=== PATIENT | female | born 1950 | race Caucasian/White ===

== ENCOUNTER 2018-01-24 22:10 | Inpatient (IN) ==
--- NOTE | 2018-01-24 23:45 | Emergency Department Note ---
Disposition Clinical Impression: Elevated troponin Chest pain Qualifiers: Chest pain type: unspecified Qualified Code(s): R07.9 - Chest pain, unspecified Disposition: Admitted As Inpatient Condition: Good Referrals: Navdeep Darby MD [Primary Care Provider] - Forms: ED Satisfaction Letter Time of Disposition: 01:59 Chest Pain HPI - General Chief Complaint: ED Chest Pain Stated Complaint: CP/L arm x 1day Time Seen by Provider: 01/24/18 23:33 Source: patient Limitations: no limitations Vital Signs Reviewed: Yes Nursing Notes Reviewed: Yes - History of Present Illness HPI Narrative: 68-year-old female former smoker presents with episodes of chest pain. She describes this as substernal, she first noticed them yesterday. She describes them as intermittent, with periods of time where she feels nothing, or to time where it is not as intense, than. The time where she feels that the pain is so bad she goes down to her knees. She mentions that she does have some mild shortness of breath when the pain occurs, as well as nausea. She states the pain is worse when she walks. He mentions she did have some discomfort moving into her left upper extremity that occurred today. She attempted to also more throughout the course of the past day to help with symptoms, but she states this has helped only marginally. She does mention that she has a scheduled CT scan tomorrow ordered by her primary care provider, and she describes history of flank pain, and abnormal urinalysis. She denies any near syncopal symptoms, abdominal pain, night sweats, weight loss, hemoptysis, fever, cough. Severity scale (1-10): 8 - Related Data Home Medications Medication Instructions Recorded Confirmed Unable To Obtain [Unable to Obtain] 01/25/18 01/25/18 Allergies Allergy/AdvReac Type Severity Reaction Status Date / Time No Known Allergies Allergy Verified 01/25/18 00:42 All systems ED: reviewed and negative except as stated. Review of Systems: As Per HPI Constitutional: Denies: fever, chills, weakness Eyes: Denies: vision change ENT ED: Denies: throat pain Cardiovascular: Reports: as per HPI. Denies: palpitations Respiratory: Reports: as per HPI Gastrointestinal: Reports: as per HPI Genitourinary: Denies: dysuria Musculoskeletal: Reports: as per HPI Integumentary: Denies: rash Neurological: Denies: headache, weakness, numbness, paresthesias Endocrine: Denies: fatigue Hematological/Lymphatic: Denies: easy bleeding Allergic/Immunologic: Denies: facial swelling Chest Pain PMH - Past Medical History Medical history: Reports: arthritis, hypertension Psychiatric history: Reports: no psych history - Social History Smoking Status: Former smoker Alcohol use: Reports: none Drug use: Reports: none Physical Exam - General Limitations: no limitations General appearance: alert, in no apparent distress - Head Head exam: normocephalic - Eye Eye exam: Present: EOMI. Absent: conjunctival injection - ENT ENT exam: normal oropharynx, mucous membranes moist - Neck Neck exam: Present: full ROM. Absent: lymphadenopathy - Chest Chest inspection: Present: normal inspection, symmetric chest wall rise - Respiratory Respiratory exam: Present: normal lung sounds bilaterally. Absent: respiratory distress - Cardiovascular Cardiovascular exam: Present: regular rate, normal rhythm - Abdominal Exam Abdominal exam: Present: soft, Non-Tender. Absent: pulsatile mass - Extremities Exam Extremities exam: Present: normal inspection, full ROM, normal capillary refill - Back Exam Back exam: Present: full ROM. Absent: CVA tenderness (R), CVA tenderness (L) - Neurological Exam Neurological exam: Present: alert - Psychiatric Psychiatric exam: Present: normal affect, normal mood - Skin Skin exam: Present: warm, dry, intact, normal color. Absent: rash, cyanosis, diaphoresis Course Course Narrative: 60-year-old female former smoker arrives via private vehicle with complaint of chest pain. She describes it as intermittent since yesterday, but had worsened tonight when she was eating which prompted her visit to the emergency department. She does describe radiation into her left upper extremity, and worsening on exertion. She denies any diaphoresis, or shortness of breath, back pain, abdominal pain, cough, fever, night sweats, weight loss. Patient mentions that she has a planned CT abdomen scheduled by her primary care provider, which apparently is due to some flank pain and possibly an abnormal urinalysis. Patient is unsure the exact reasoning of the CT scan. Today she denies any abdominal pain, flank pain, bowel or bladder symptoms. EKG does show an incomplete right bundle-branch block, moderate T-wave abnormalities. She currently denies any chest pain at this point. Portable chest x-ray as read by radiologist, per recommendations for follow-up CT chest, or apical lordosis chest x-ray. Patient was discussed with Dr. Rowland who also had face time with patient. At this point, we will anticipate admission for ACS rule out due to likely heart score. Dr. rowland also agreed with CT of chest, since patient has a scheduled CT abdomen and we will do that as well. Patient seen and examined. she is declined analgesics. Workup initiated. - Reevaluation(s) Reevaluation #1: Other than heartburn sensations, patient continues to deny any worsening pain, and analgesics but is requesting something for her reflux. Her vitals within normal limits. Patient was discussed with cardiology who agreed for admission and heparinization. Patient was discussed with and accepted by hospitalist Dr. Brooks Time: 01:57 - Consultations Consultation #1: Patient was discussed with on-call computed tomography scanner operator Dr. Navdeep Callahan, who agreed with admission to hospitalist, and for heparinization. Time: 01:49 Vital Signs Temperature 97.9 F 01/24/18 22:13 Pulse Rate 74 01/24/18 22:13 Respiratory Rate 14 01/24/18 22:13 Blood Pressure 204/97 01/24/18 22:13 O2 Sat by Pulse Oximetry 96 01/24/18 22:13 Temperature 97.9 F 01/24/18 22:13 Pulse Rate 73 01/25/18 01:07 Respiratory Rate 18 01/25/18 01:07 Blood Pressure 193/96 01/25/18 01:07 O2 Sat by Pulse Oximetry 95 01/25/18 01:07 Oxygen Delivery Oxygen Delivery Room Air Chest Pain - Lab Data Result diagrams: 01/24/18 22:27 01/24/18 22:27 Lab Results 01/24/18 01/24/18 01/24/18 Range/Units 22:17 22:27 22:27 WBC 8.6 (4.3-11.1) K/mcL RBC 4.90 (3.82-4.97) M/mcL Hgb 14.5 (11.5-15.4) g/dL Hct 43.1 (35.3-44.9) % MCV 88.0 (83.0-100.0) fL MCH 29.6 (28.0-33.3) pg MCHC 33.6 (31.6-35.5) g/dL RDW 13.5 (11.5-14.5) % Plt Count 254 (140-400) K/mcL MPV 9.7 (9.4-12.4) fL Immature Gran % 0.5 (0-4) % Seg Neutrophils % 81.1 % Lymphocytes % 10.4 % Monocytes % 6.8 % Eosinophils % 1.0 % Basophils % 0.2 % Neutrophils # 7.0 (1.6-8.9) K/mcL Lymphocytes # 0.9 (0.6-4.6) K/mcL Monocytes # 0.6 (0.0-1.3) K/mcL Eosinophils # 0.1 (0.0-0.6) K/mcL Basophils # 0.0 (0.0-0.2) K/mcL PT 10.9 (9.4-12.1) Seconds INR 1.0 APTT 37.0 H (26.0-36.0) Seconds Sodium 137 (136-145) mEq/L Potassium 3.7 (3.5-5.1) mEq/L Chloride 108 H (98-107) mEq/L Carbon Dioxide 26 (23-29) mEq/L BUN 14 (8-23) mg/dL Creatinine 0.64 (0.60-1.20) mg/dL Est GFR ( Amer) > 60 (> 60) Est GFR (Non-Af Amer) > 60 (> 60) BUN/Creatinine Ratio 22 (6-26) Glucose 107 H (70-105) mg/dL Calculated Osmolality 285 (280-300) Calcium 9.4 (8.6-10.3) mg/dL Troponin I 0.13 H* (< 0.04) ng/mL Heart Score - Score History: Slightly Suspicious EKG: Normal Age: Greater than 65 Risk Factors: Equal/Greater than 3 risk factor or history of atherosclerotic disease Troponin: Greater than 3x normal limit HEART Score Total: 6
[2018-01-25 00:04] LABS: Basophils % 0.2 %; Eosinophils # 0.1 K/mcL (0.0-0.6); Hematocrit 43.1 % (35.3-44.9); Hemoglobin 14.5 g/dL (11.5-15.4); Immature Granulocytes % 0.5 % (0-4); Lymphocytes # 0.9 K/mcL (0.6-4.6); Lymphocytes % 10.4 %; Mean Corpuscular HGB Conc 33.6 g/dL (31.6-35.5); Mean Corpuscular Hemoglobin 29.6 pg (28.0-33.3); Mean Platelet Volume 9.7 fL (9.4-12.4); Monocytes # 0.6 K/mcL (0.0-1.3); Monocytes % 6.8 %; Platelet Count 254 K/mcL (140-400); Red Cell Distribution Width 13.5 % (11.5-14.5); Segmented Neutrophils % 81.1 %
--- NOTE | 2018-01-25 00:05 | Emergency Department Note ---
Disposition Clinical Impression: ACS (acute coronary syndrome) Disposition: Still a Patient Condition: Good Referrals: Navdeep Darby MD [Primary Care Provider] - Forms: ED Satisfaction Letter General Adult HPI - General Chief complaint: ED Chest Pain Stated complaint: CP/L arm x 1day Time Seen by Provider: 01/24/18 23:33 Source: patient Limitations: no limitations - History of Present Illness Pain Scale: 8 - Related Data Allergies Allergy/AdvReac Type Severity Reaction Status Date / Time Unable to Assess Allergy Unverified 01/24/18 22:13 Constitutional: Denies: fever, chills, weakness Eyes: Denies: vision change ENT ED: Denies: throat pain Cardiovascular: Reports: as per HPI. Denies: palpitations Respiratory: Reports: as per HPI Gastrointestinal: Reports: as per HPI Genitourinary: Denies: dysuria Musculoskeletal: Reports: as per HPI Integumentary: Denies: rash Neurological: Denies: headache, weakness, numbness, paresthesias Endocrine: Denies: fatigue Hematological/Lymphatic: Denies: easy bleeding Allergic/Immunologic: Denies: facial swelling Past Medical History - Past Medical History Medical history: Reports: arthritis, hypertension Psychiatric history: Reports: no psych history - Social History Smoking Status: Former smoker Smokeless Tobacco Status: No Alcohol use: Reports: none Drug use: Reports: none Physical Exam - General Limitations: no limitations General appearance: alert, in no apparent distress Course - Reevaluation(s) Reevaluation #1: Attestation note I examined this patient and my medical decision-making was reviewed with the PA. I agree with the documented findings, disposition and treatment plan as described except to the extent set forth below. Patient seen with SIMBA DOSS, Please see a copy of his note for details of the H&P, ED evaluation, management and disposition. I have independently evaluated the patient and confirmed appropriate portions of the history and physical exam. Briefly: 60-year-old female presents with chest pain some shortness of breath patient has a HEART score 4. Chest x-ray ordered at triage shows a finding in the apex they have recommended either apical lordotic views were CT the chest to do a CT of the chest EKG shows some mild possible early ST depression of 1 mm or less in the 3 and V4 and 5 Department patient is has a history of hiatal hernia in the past. Patient getting screening labs with admission anticipated for chest pain ACS. Disposition pending Time: 00:04 Vital Signs Temperature 97.9 F 01/24/18 22:13 Pulse Rate 74 01/24/18 22:13 Respiratory Rate 14 01/24/18 22:13 Blood Pressure 204/97 01/24/18 22:13 O2 Sat by Pulse Oximetry 96 01/24/18 22:13 Temperature 97.9 F 01/24/18 22:13 Pulse Rate 74 01/24/18 22:13 Respiratory Rate 14 01/24/18 22:13 Blood Pressure 204/97 01/24/18 22:13 O2 Sat by Pulse Oximetry 96 01/24/18 22:13 Oxygen Delivery Oxygen Delivery Room Air
[2018-01-25 00:08] LABS: Prothrombin Time 10.9 Seconds (9.4-12.1)
[2018-01-25 00:32] LABS: BUN/Creatinine Ratio 22 (6-26); Blood Urea Nitrogen 14 mg/dL (8-23); Calcium 9.4 mg/dL (8.6-10.3); Carbon Dioxide 26 mEq/L (23-29); Chloride 108 mEq/L (98-107); Glucose 107 mg/dL (70-105); Osmolality,Calculated 285 (280-300); Potassium 3.7 mEq/L (3.5-5.1); Sodium 137 mEq/L (136-145); eGFR For Non-African Americans > 60 (> 60)
[2018-01-25 00:39] LABS: Troponin I 0.13 ng/mL (< 0.04)
[2018-01-25] MEDS ORDERED: Aspirin 81 MG TAB.CHEW PO ONE (00:39)
[2018-01-25] MEDS ORDERED: Pantoprazole 40 MG VIAL IVP ONE (01:51)
[2018-01-25] MEDS ORDERED: *HR* Heparin 5,000 UNIT/ML VIAL IVP ONE (01:51)
[2018-01-25] MEDS ORDERED: Heparin 25,000 UNIT/500 ML D5W 25,000 UNIT/500 ML BAG IVC SCH (02:00)
[2018-01-25] MEDS ORDERED: Acetaminophen 325 MG TABLET PO PRN (02:01)
[2018-01-25] MEDS ORDERED: Naloxone 0.4 MG/ML INJ IVP PRN (02:01)
[2018-01-25] MEDS ORDERED: *HR* HYDROcodone/Acet 5/325 mg TABLET PO PRN (02:01)
[2018-01-25] MEDS ORDERED: *HR* OxyCODONE Immed Rel 5 MG TABLET PO PRN (02:01)
[2018-01-25] MEDS ORDERED: *HR* Labetalol 20 MG/4 ML SYRINGE IVP PRN (02:05)
--- NOTE | 2018-01-25 02:39 | Internal Med History&Physical ---
Date of Encounter: 01/25/18 Time of Encounter: 02:00 Internal Medicine - H&P: HPI Chief complaint: chest pain History of present illness: Ms. Jade is a 68 year old female with past medical history of hypertension, hyperlipidemia, ex-smoker, presented to the ED with 2 day history of intermittent chest pain. Substernal, 6 out of 10 in intensity, radiates to her left arm, aggravated by exertion, and no known relieving factors. Denies any fevers/chills, nausea/vomiting, or diaphoresis. No shortness of breath, cough, sputum production, abdominal pain, or change in bowel habits. Did not have any similar episodes in the past. No family history of premature CAD. In the ER, she was afebrile and hemodynamically stable. She was saturating well on room air. Initial investigation showed elevated troponin of 0.13 but normal CBC and BMP. EKG showing slight ST depression in V3-5. CT scan showed evidence of coronary calcifiications and 5mm left lung nodule. Patient was loaded with aspirin and started on heparin drip after speaking to the industrial organizational psychologist. Past Med Surg Social Fam HX - Past Medical History Medical history: arthritis, hyperlipidemia, hypertension Psychiatric history: no psych history - Social History Smoking Status: Former smoker Smokeless Tobacco Status: No Alcohol use: none Drug use: none Internal Medicine - H&P: Meds Unable To Obtain [Unable to Obtain] 01/25/18 [History] 3 Allergy/AdvReac Type Severity Reaction Status Date / Time No Known Allergies Allergy Verified 01/25/18 00:42 All Systems PM: A 10-system review of systems was performed and is negative for pertinent findings except as documented above in the HPI. - Constitutional Vitals: Temp Pulse Resp BP Pulse Ox 97.9 F 70 18 173/87 95 01/24/18 22:13 01/25/18 02:31 01/25/18 02:31 01/25/18 02:31 01/25/18 02:31 Exam: General: Alert and oriented HEENT:EOM, pupils equal, round, and reactive. Cardiovascular:Normal S1 & S2, no murmurs or gallops. No JVD. Pulse regular. Lungs:Normal breath sounds, no wheezes or crackles. Abdomen:Soft, non-tender, no rigidity. Extremities:No deformity, no edema or tenderness, no joint swelling. Neurological:Normal cognition and motor skills. Skin:Normal color, no rash, no lesions. Pulses:Carotid and radial pulses normal +2. Rest of the physical exam is non-contributory Internal Med - H&P Results - Labs CBC & Chem 7: 01/24/18 22:27 01/24/18 22:27 - Assessment and plan (1) NSTEMI (non-ST elevated myocardial infarction) Current Visit: Yes Status: Acute Assessment and plan: Presented with atypical chest pain and elevated cardiac markers. Risk factors including hypertension, hyperlipidemia and ex-smoker. EKG showing ST depression in lateral leads. Troponin 0.13 -> trend Loaded with aspirin, start daily aspirin from AM heparin gtt per cardiology bb, statin to be started as well Decision for the choice of ischemic workup per cardiology in AM, consult called from the ED (2) Hypertension Current Visit: Yes Status: Chronic Assessment and plan: Elevated at 190/90s on aldactone at home as she had "many reactions to the other anti-HTN meds" PRN labetalol start metoprolol from AM Qualifiers: Hypertension type: unspecified Qualified Code(s): I10 - Essential (primary ) hypertension (3) HLD (hyperlipidemia) Current Visit: No Status: Chronic Assessment and plan: lipid panel done in December 2017 showed LDL of 118 willl not repeat another one Lipitor 80 mg Qualifiers: Hyperlipidemia type: unspecified Qualified Code(s): E78.5 - Hyperlipidemia , unspecified (4) Lung nodule Current Visit: Yes Status: Acute Assessment and plan: Patient is ex-smoker, quit 16 years ago 5 mm lung nodule noted incidentally on the left lower lobe Follow-up outpatient (5) DVT prophylaxis Current Visit: Yes Status: Acute Assessment and plan: heparin gtt as above - Time Spent With Patient Total time spent is greater than 50% in coordination of care (as documented) at patient's floor/unit and/or counseling patient:
[2018-01-25 06:48] LABS: Basophils % 0.3 %; Eosinophils # 0.1 K/mcL (0.0-0.6); Eosinophils % 1.7 %; Hematocrit 42.6 % (35.3-44.9); Hemoglobin 14.2 g/dL (11.5-15.4); Immature Granulocytes % 0.3 % (0-4); Lymphocytes # 1.5 K/mcL (0.6-4.6); Lymphocytes % 20.2 %; Mean Corpuscular HGB Conc 33.3 g/dL (31.6-35.5); Mean Corpuscular Hemoglobin 29.6 pg (28.0-33.3); Mean Corpuscular Volume 88.9 fL (83.0-100.0); Monocytes # 0.6 K/mcL (0.0-1.3); Monocytes % 7.9 %; Platelet Count 245 K/mcL (140-400); Red Blood Count 4.79 M/mcL (3.82-4.97); Red Cell Distribution Width 13.5 % (11.5-14.5); Segmented Neutrophils % 69.6 %
[2018-01-25 08:02] LABS: Estimated Average Glucose 117 mg/dl; Hemoglobin A1C 5.7 %
[2018-01-25 09:33] LABS: BUN/Creatinine Ratio 19 (6-26); Blood Urea Nitrogen 11 mg/dL (8-23); Calcium 9.1 mg/dL (8.6-10.3); Carbon Dioxide 25 mEq/L (23-29); Chloride 106 mEq/L (98-107); Glucose 117 mg/dL (70-105); Magnesium 1.9 mg/dL (1.6-2.6); Osmolality,Calculated 292 (280-300); Potassium 3.5 mEq/L (3.5-5.1); Sodium 141 mEq/L (136-145); eGFR For Non-African Americans > 60 (> 60)
[2018-01-25] MEDS: Aspirin Enteric Coated 81 MG Tablet PO SCH (09:59)
--- NOTE | 2018-01-25 11:21 | Cardiology Consult Note ---
Date of Encounter: 01/25/18 Time of Encounter: 11:04 Assessment and Plan (1) Chest pain Current Visit: Yes Status: Acute Patient presenting with chest pain and elevated troponin, no ST elevation on EKG - currently minimally symptomatic - patient most likely NSTEMI - troponin uptrending, 0.13, 0.67 - bmp and cbc within normal limits - JENIFER score of 5, significant for age, ASA, angina history, positive trop, CAD hx - HEART score of 7 - past echocardiogram performed 05/2017 showing EF 65%, with mild asymmetrical hypertrophy, mild left ventr diastolic dysfunction, mild TR - vitals have remained stable and has not taken nitro - on heparin drip, asa, statin and BB Plan - echo pending - continue heparin drip, statin, asa, bb - continue to trend trop - ddimer, negative - [facility] scheduled for today, patient in agreement and understands plan Qualifiers: Chest pain type: unspecified Qualified Code(s): R07.9 - Chest pain, unspecified Discussion w patient/family: The assessment and plan as outlined above was discussed with the patient and/or family members who expressed understanding and agreement. All questions were answered. Thank you for involving us in the care of your patient. Please call with any questions. History of Present Illness Consult date: 01/25/18 Requesting physician: Ismael Brooks Consult reason: chest pain Chief complaint: chest pain History of present illness: Ms. Jade is a 68 year old female presenting for cardiology consult for chest pain and elevated troponin. Patient has medical history of hypertension, hyperlipidemia, acid reflux and history of smoking, Patient was brought to the ER on 01/24/18 for chest pain which had started 3 days ago and was described to have waxing and waning characteristics of mid-sternal pain described as a burning sensation, that gradually became a pressure in the middle of the chest with radiation once into the left arm. She has exacerabtion of factors with exertion. She states initially she thought she was having indigestion and was taking tums, ant-acids which provided slight relief for about 30 minutes at a time, however, never completely took her symptoms away. Over the last day, her symptoms progressively got worse, stating yesterday she was in her kitchen and fell to her knees due to pain. She states that over the past few days she has continued to go to work at [employer], lifting, bending, and walking states that her symptoms would increase during these activities. She denies prior history of similar events. She denies palpitations, vomiting, sob, syncope, or prior cardiac history. She had an echocardiogram performed 06/03 for diastolic dysfunction. She states that her father of an MO at the age of 55. In the ER, she was found to have EKG with ST depression in V1-V3, troponin was elevated at .16, was not given nitro as symptoms had resolved. Started on heparin ACS protocol. She does take a baby aspirin daily. CXR showed nonspecific density to the medial right lobe at the apex and had followed up CT which showed 5mm nodule in LLL, with coronary artery disease. Today, patient states that she has minimal pain in the mid chest, continues to describe pain as pressure/ burning sensation, rated 2-3/10. She denies current nausea, abdominal pain, recent fever or chills. Past Med Surg Social Fam HX - Past Medical History Medical history: arthritis, hyperlipidemia, hypertension Psychiatric history: no psych history - Past Surgical History Surgical History: appendectomy, sinus surgery, JANETTE/BSO Additional surgical history: groin hernia, lumpectomy to left breast, tonsils - Social History Smoking Status: Former smoker Smokeless Tobacco Status: No Alcohol use: none Drug use: none Medications and Allergies Unable To Obtain [Unable to Obtain] 01/25/18 [History] 3 Allergy/AdvReac Type Severity Reaction Status Date / Time No Known Allergies Allergy Verified 01/25/18 00:42 All Systems Review: The remainder of the systems were reviewed and are negative - Constitutional Constitutional: fatigue, no chills, no fever(s), no frequent falls, no headache( s), no weakness, no weight gain, no weight loss - Cardiovascular Cardiovascular: chest pain at rest, chest pain with exertion, no as per HPI, no claudication, no diaphoresis, no dyspnea at rest, no dyspnea on exertion, no irregular heart rhythm, no radiating jaw, neck or arm pain, no leg edema, no lightheadedness, no orthopnea, no palpitations, no syncope - Respiratory Respiratory: no cough, no dyspnea - Gastrointestinal Gastrointestinal: nausea, no abdominal pain, no diarrhea - Musculoskeletal Musculoskeletal: back pain (chronic) - Integumentary Integumentary: no rash - Neurological Neurological: no dizziness, no focal weakness, no numbness, no syncope, no tingling Physical Examination Vital Signs, Last 4 Hours Temp Pulse Resp BP Pulse Ox 01/25/18 07:14 98.0 F 62 15 190/90 97 General: Conversant, No Apparent Distress HEENT: Atraumatic, Normocephaly, Mucus Membranes Moist Neck: No JVD, Normal carotid pulses Cardiac: Reg Rate and Rhythm, Normal S1 and S2, No Murmur Lungs: Normal Breath Sounds, No Wheeze, Rales, Rhonchi Neuro: Alert and responsive, No focal deficits noted Abdomen: Soft, Non-Tender Skin: No rashes noted on visualized skin Musculoskeletal: No Chest Wall Tenderness Extremities: No Cyanosis, No Edema, Normal Pulses Results 01/25/18 06:19 01/25/18 06:19 Lab Results 01/25/18 01/25/18 01/25/18 06:19 06:19 06:19 WBC 7.2 Hgb 14.2 Hct 42.6 Plt Count 245 D-Dimer Sodium 141 Potassium 3.5 Chloride 106 Carbon Dioxide 25 BUN 11 Creatinine 0.59 L Glucose 117 H Calcium 9.1 Magnesium 1.9 Troponin I 0.67 H* 01/25/18 01/25/18 09:49 09:51 WBC Hgb Hct Plt Count D-Dimer 369 Sodium Potassium Chloride Carbon Dioxide BUN Creatinine Glucose Calcium Magnesium Troponin I 1.03 H* - Imaging and Cardiology Chest Xray: report reviewed Echo: pending, report reviewed Consult Discharge Plan - Plan Referrals: Navdeep Darby MD [Primary Care Provider] -
--- NOTE | 2018-01-25 11:44 | Internal Med Progress Note ---
Hospitalist Progress Note - Encounter Date of Encounter: 01/25/18 Time of Encounter: 10:30 - Subjective Interval History: Patient seen and examined at bedside. Pt. was resting in bed and stated that she continues to have CP centralized in her chest that is constant. Pt. states that she works and CP was severe yesterday. CP has been occurring for the past three days. Worsens w/exertion. Denies previous cardiac hx. Echocardiogram in showed diastolic dysfunction. Admission EKG showed ST depression in V1-V3. Rates CP as 3/10 on exam. Pt. denies SOB. Cardiology consulted during admission and pt. placed on heparin drip d/t initial troponin of 0.13. Second trop was 0.67 and third was 1.03. Will continue heparin drip and await Cardiology recommendations. Pt. reports possible LHC discussed with her. Repeat Echo. Pt. expresses understanding and agreement w/plan of care. - Exam Vitals: Temp Pulse Resp BP Pulse Ox 98.4 F 69 15 168/85 97 01/25/18 11:21 01/25/18 11:21 01/25/18 11:21 01/25/18 11:21 01/25/18 11:21 Exam: PHYSICAL EXAMINATION: GENERAL: The patient is a well-developed female reporting 3/10 CP. She is alert and oriented x3. HEENT: Head is normocephalic and atraumatic. Extraocular muscles are intact. Pupils are equal, round, and reactive to light and accommodation. Nares appeared normal. Mouth is well hydrated and without lesions. Mucous membranes are moist. NECK: Supple. No carotid bruits. No lymphadenopathy or thyromegaly. LUNGS: Scattered wheezes right greater than left, no rales HEART: Regular rate and rhythm grade 2 murmur murmur. No JVD noted ABDOMEN: Soft, nontender, and nondistended. Positive bowel sounds. No hepatosplenomegaly was noted. EXTREMITIES: Without any cyanosis, clubbing, rash, lesions. +1 pitting edema NEUROLOGIC: Cranial nerves II through XII are grossly intact. PSYCHIATRIC: Normal mood and affect. SKIN: No ulceration or induration present. - Assessment and Plan (1) NSTEMI (non-ST elevated myocardial infarction) Current Visit: Yes Status: Acute Assessment and Plan: Presented with atypical chest pain and elevated cardiac markers. Risk factors including hypertension, hyperlipidemia and ex-smoker. EKG showing ST depression in lateral leads V1-V3. Troponins: 0.13, 0.67, 1.03 Loaded with aspirin, start daily aspirin from AM Continue heparin gtt per cardiology BB, statin to be started as well Monitor and follow Cardiology recommendations. (2) Lung nodule Current Visit: Yes Status: Acute Assessment and Plan: Patient is ex-smoker, quit 16 years ago 5 mm lung nodule noted incidentally on the left lower lobe Follow-up outpatient (3) Hypertension Current Visit: Yes Status: Chronic Assessment and Plan: Improving to 140s/80s On aldactone at home as she had "many reactions to the other anti-HTN meds" PRN labetalol Continue Metoprolol (4) HLD (hyperlipidemia) Current Visit: Yes Status: Chronic Assessment and Plan: Lipid panel done in December 2017 showed LDL of 118 Continue pts. Lipitor 80 mg (5) DVT prophylaxis Current Visit: Yes Status: Acute Assessment and Plan: Pt. placed on heparin drip d/t elevated troponin. Monitor for signs of bleeding. - Time Spent with Patient Total time spent is greater than 50% in coordination of care (as documented) at patient's floor/unit and/or counseling patient: Internal Medicine: Result - Labs CBC & Chem 7: 01/25/18 06:19 01/25/18 06:19 Labs: Short CBC 01/25/18 Range/Units 06:19 WBC 7.2 (4.3-11.1) K/mcL Hgb 14.2 (11.5-15.4) g/dL Hct 42.6 (35.3-44.9) % Plt Count 245 (140-400) K/mcL Neutrophils # 5.0 (1.6-8.9) K/mcL BMP 01/25/18 06:19 Sodium 141 Potassium 3.5 Chloride 106 Carbon Dioxide 25 BUN 11 Creatinine 0.59 L Glucose 117 H Calcium 9.1 Cardiac Enzymes 01/25/18 01/25/18 Range/Units 06:19 09:49 Troponin I 0.67 H* 1.03 H* (< 0.04) ng/mL - ABG Interpretation ABG results: PT/INR, D-dimer PT 10.9 Seconds (9.4-12.1) 01/24/18 22:17 D-Dimer 369 ng/mLFEU (0-500) 01/25/18 09:51 - VTE Documentation of Mechanical Device: Venous foot pump, device Consult Discharge Plan - Plan Referrals: Wilner,Navdeep Bruno MD [Primary Care Provider] - (3) Hypertension Qualifiers: Hypertension type: essential hypertension Qualified Code(s): I10 - Essential (primary) hypertension (4) HLD (hyperlipidemia) Qualifiers: Hyperlipidemia type: pure hypercholesterolemia Qualified Code(s): E78.00 - Pure hypercholesterolemia, unspecified; E78.0 - Pure hypercholesterolemia
[2018-01-25] MEDS ORDERED: *HR* Heparin 10,000 UNIT/10 ML VIAL ONE (12:11)
[2018-01-25] MEDS ORDERED: Heparin 1,000 UNITS/500 mL 500 ML ONE (12:11)
[2018-01-25] MEDS ORDERED: Verapamil 5 MG/2 ML VIAL ONE (12:11)
[2018-01-25] MEDS ORDERED: 0.9 % Sodium Chloride 2,000 ML ONE (12:11)
[2018-01-25] MEDS ORDERED: ISOVUE-370 200 ML INFUS..BTL IV ONE (12:12)
[2018-01-25] MEDS ORDERED: Nitroglycerin 1,000 MCG/10 ML VIAL IV ONE (12:12)
--- NOTE | 2018-01-25 12:51 | Pre-Sedation Evaluation ---
Pre-sedation evaluation - Pre-sedation checklist Date of procedure: 01/25/18 Procedure: [facility] Recent Vitals: Last Vital Signs Temp 98.4 F 01/25/18 11:21 Pulse 69 01/25/18 11:21 Resp 15 01/25/18 11:21 BP 168/85 01/25/18 11:21 Pulse Ox 97 01/25/18 11:21 H&P (including ROS) documented in medical record: Yes Previous reaction to sedatives/anesthetics: No Dietary Status: NPO after Midnight Airway Assessment: Patient can open mouth completely, TMJ function normal Dentition: dentures removed ASA Classification *see protocol: CLASS II-Mild systemic disease Plan of Care: Pt appropriate candidate for procedure/moderate/conscious sedation , Risks/benefits of procedure/sedation discussed w/ patient/family Cardiac Registry (Cardio Only) - Functional Capacity Functional Capacity: >=4 METS with symptoms - Clincal Frailty Scale Clinical Frailty Scale: Managing Well
[2018-01-25] MEDS ORDERED: *HR* Midazolam HCl 2 MG/2 ML VIAL ONE (12:52)
[2018-01-25] MEDS ORDERED: *HR* FentaNYL (PF) 100 MCG/2 ML VIAL ONE (12:52)
--- NOTE | 2018-01-25 13:12 | Event Note ---
Date of Encounter: 01/25/18 Time of Encounter: 13:09 I attempted to sign presents consultation, but [facility] would not allow. Please consider this event note my attestation that consultation. Patient is a 68-year-old who reports greater a 24-hour period of epigastric, substernal burning sensation. She thought was indigestion and took Tums with minimal relief. Symptoms worsened yesterday, which brought her to the hospital. Overall, she reports she feels better, but continues to report vague chest discomfort. Initial workup demonstrated mildly elevated troponin, which further increased throughout the evening. ECG does not demonstrate any dynamic ST or T-wave changes. D-dimer was less than 500. Impressions: 1. Presentation is suggestive of a non-ST segment elevation myocardial infarction. Recommendations: Continue ACS therapy, including aspirin, statin, beta ed, and heparin drip. Patient is scheduled for cardiac catheterization soon. We will hold dual antiplatelet therapy until the time of catheterization, if in fact becomes necessary. Check TTE. Risk factor modification emphasized. Further recommendations will be made based upon the results of her testing and response to therapy. Thanks, Juan Salgado DO, FACC
[2018-01-25] MEDS ORDERED: Tirofiban 12.5 MG/250ML 12.5 MG/250 ML BAG ONE (13:21)
[2018-01-25] MEDS ORDERED: Tirofiban 12.5 MG/250ML 12.5 MG/250 ML BAG IVC SCH (14:00)
--- NOTE | 2018-01-25 14:19 | Invasive Diagnostic Lab Proc ---
Name: Shweta Jade Date of Study: 01/25/2018 Date: 1950 Ht: 61.8in Medical Record#: [id number] Age: 68 Wt: 138.89lb Gender: Female BSA: 1.63 Order #: [id number] BMI: 25.56 Physicians Procedure Physician: Florentin Ruiz MD, [facility] Referring MD: Referring MD: Staff Name Position Time In Malina Zamudio RN Monitor 01:01 PM Parris Ward RN Building Cleaner 01:01 PM Lorie Cheng RT (R) Scrub 01:02 PM Indications Indication Non-Stemi Procedures Performed Procedure L HRT ARTERY/VENTRICLE ANGIO PRQ CARD DARIA STENT W/ANGIO 1 VSL Pre-Procedure Checklist Informed consent is complete signed and on chart. H&P is on chart. ID band is on and ID verified with patient. Patient NPO for procedure The procedure was described for the patient and questions were answered. Blood Pressure: 191/72 ECG is on chart. Rhythm: SR w/BBB Plan of Care Patient will tolerate the procedure without complications. Adequate level of comfort will be maintained. Hemodynamics will remain stable Patient will recover from procedure without complications. Respiratory function will be maintained. Cardiac rhythm will remain stable. Patient temperature will be maintained. Patient and/or family have verbalized understanding of the procedure. Patient Education Chief Complaint/Reason for Test: Cardiac Cath Developmental Category: Adult (18-64 years) Developmentally Appropriate for Age: Yes Learning Barriers: None Education Needs: Procedure Education Method: Verbal Information Taught: Cardiac Cath Educational Evaluation: Able to repeat information Intravenous Access Time IV Size Location DC'd Fluid/Drip Rate Units RN 12:59 PM 20g 1 06/21" Patent On Arrival Lt Wrist 0.9NaCl 25 ml/hr Parris Ward RN Allergies NO KNOWN DRUG ALLERGIES Unable to Assess NKA No Known Allergies Vital Signs Time BP (mmHg) HR (bpm) O2 Sat. RR (bpm) LOC 12:59 PM 191 / 72 63 100 % 14 5 = Fully awake and oriented or at pre-proc level / % 01:03 PM / % 5 = Fully awake and oriented or at pre-proc level 01:03 PM / % 5 = Fully awake and oriented or at pre-proc level 01:05 PM / % 4 = Oriented but drowsy 01:20 PM / % 4 = Oriented but drowsy 12:56 PM 191 / 72 63 100 % 14 01:00 PM 167 / 76 61 99 % 15 01:05 PM 170 / 64 60 99 % 15 01:10 PM 152 / 69 69 100 % 15 01:15 PM 140 / 63 69 99 % 13 01:20 PM 130 / 60 67 99 % 15 01:26 PM 147 / 58 57 99 % 13 01:30 PM 162 / 65 64 99 % 16 01:35 PM 152 / 60 56 99 % 16 01:40 PM 160 / 65 66 100 % 13 01:45 PM 169 / 82 66 100 % 13 01:35 PM / % 5 = Fully awake and oriented or at pre-proc level Procedural Medications Time Medication Dose Units Method Given By 01:04 PM Oxygen 2 L/min nasal cannula Parris Ward RN 01:04 PM Versed 2 mg Intravenous Parris Ward RN 01:05 PM Fentanyl 50 mcg Intravenous Parris Ward RN 01:10 PM Lidocaine 2% 0.5 ml Subcutaneous Florentin Ruiz MD, FACC 01:11 PM Heparin 2000 units Nitroglycerin 200 mcg Verapamil 2.5 mg Intraarterial Florentin Ruiz MD, FACC 01:25 PM Heparin 2000 units Intravenous Parris Ward RN 01:31 PM Nitroglycerin 200 mcg Intracoronary Florentin Ruiz MD 01:32 PM Aggrastat Bolus: 33 ml Intravenous Parris Ward RN 01:32 PM Aggrastat 12.5mg/250ml 11.3 ml Intravenous Parris Ward RN 01:50 PM Plavix 600 mg Orally Parris Ward RN ASA Classification: CLASS II- Mild systemic disease (i.e. well-controlled diabetes, hypertension, asthma, cigarette smoking) Yeyo Score Preprocedure Postprocedure Activity 2- Moves 4 extremities sustained head lift Activity 2- Moves 4 extremities sustained head lift Circulation 2- SBP +/= 20 points of pre-anesthetic level Circulation 2- SBP +/= 20 points of pre-anesthetic level Consciousness 2- Awake and alert oriented x 3 Consciousness 2- Awake and alert oriented x 3 O2 Saturation 2- Able to maintain O2 satruation of 92% on room air O2 Saturation 2- Able to maintain O2 satruation of 92% on room air Respiratory 2- Able to deep breathe and cough well Respiratory 2- Able to deep breathe and cough well Total Score 10 Total Score 10 Contrast Agent: Isovue Diagnostic Contrast: 130 ml Total Contrast: 130 ml Fluoro Dose: 3031 mGy Activated Clotting Time Time Seconds to Clot 01:25 PM 221 Procedure Log Time Note Enter By 12:54 PM CathStat 12:54 PM Vitals capture started with the following parameters, Patient=Adult, Interval=5 min, Initial Yenhgfed=642 mmHg, Deflation Rate=5 mmHg, Cuff placed on Right Arm 12:56 PM HR=63 bpm, AFYM=521/72 mmhg, LfW6=948.0 %, Resp=14 B/min, EtCO2=38 mmHg, Comment=SR w/BBB 12:56 PM Pt arrived to laboratory tester 2 at 12:56 tsites 12:56 PM Physician arrived 12:56 tsites 12:56 PM Meet and greet completed tsites 12:56 PM Sign in performed according to hospital policy. tsites 12:56 PM Procedure start 12:56 tsites 01:00 PM HR=61 bpm, RNFT=654/76 mmhg, SpO2=99.0 %, Resp=15 B/min, EtCO2=36 mmHg, Comment=SR w/BBB 01:01 PM Patient charges- Angio tray pack, Navilyst 3mm J, Pulse Oximetry and ACIST tubing and transducer tsites 01:01 PM Malina Zamudio RN Position: Monitor Time in: 13:01 tsites 01:02 PM Parris Ward RN Position: Building Cleaner Time in: 13:01 tsites 01:02 PM Lorie Cheng RT (R) Position: Scrub Time in: 13:02 tsites 01:02 PM Case Delayed No tsites 01:02 PM Hair removed from procedure site in procedure lab using clippers. Right wrist and Rt groin prepped with Chloraprep by Malina Zamudio RN, then patient was draped. Skin intact. tsites 01:03 PM Time: 13:03 Patient comfortable and pain free: Yes malena 01:03 PM Time: 13:03LOC: 5 = Fully awake and oriented or at pre-proc level malena 01:04 PM ASA Class CLASS II- Mild systemic disease (i.e. well-controlled diabetes, hypertension, asthma, cigarette smoking) malena :04 PM Time: 13:04 Oxygen on at 2 L/min per nasal cannula by Parris Wadr RN : PM Time: 13:04 Versed 2 mg Intravenous Given by Parris Ward RN : PM Time: 13:05 Fentanyl 50 mcg Intravenous Given by [facility] RN [facility] : PM Time: 13:03 Patient comfortable and pain free: Yes [employer] : PM Time: 13:03LOC: 5 = Fully awake and oriented or at pre-proc level [employer] : PM Clinical Presentation: Non-STEMI [employer] : PM HR=60 bpm, TXHR=084/64 mmhg, SpO2=99.0 %, Resp=15 B/min, EtCO2=38 mmHg, Comment=SR w/BBB 01:10 PM Time out performed according to hospital policy [employer] : PM Time: 13:10 0.5 ml Lidocaine 2% to right radial Subcutaneous Given by Florentin Ruiz MD, [facility] :10 PM HR=69 bpm, ILJV=725/69 mmhg, SiL7=613.0 %, Resp=15 B/min, EtCO2=35 mmHg, Comment=SR w/BBB 01:11 PM Access obtained by percutaneous puncture. 6Fr 10cm Terumo Glidesheath sheath placed in right Radial artery. [id number] [employer] PM Time: 13:11 Patient given 2,000 units Heparin, 200 mcg Nitroglycerin, and 2.5 mg Verapamil Intraarterial by Florentin Ruiz MD, [facility]. This is given to reduce risk of vessel spasm and thrombosis. [employer] :12 PM 5Fr TIG catheter inserted over the wire [facility] :12 PM 0.035 145cm Navilyst 3mmJ wire [id number] [employer] :12 PM LCA angiography performed in multiple views. [employer] :13 PM Recorded Pressure: Ao, HR=76, Condition=Condition 1 (Aorta) Ao 116/74/94 01:15 PM RCA angiography performed in multiple views. [employer] :15 PM Recorded Pressure: Ao, HR=70, Condition=Condition 1 (Aorta) Ao 126/76/100 01:15 PM HR=69 bpm, HZTL=606/63 mmhg, SpO2=99.0 %, Resp=13 B/min, EtCO2=36 mmHg, Comment=SR w/BBB 01:16 PM Catheter removed lparsley 01:17 PM Coronary Dominance: right lparsley 01:17 PM Lesion found in Mid LAD. Pre Stenosis: 30 lparsley 01:18 PM Lesion found in Mid Circumflex. Pre Stenosis: 60 lparsley 01:18 PM 5Fr Pigtail catheter inserted over the wire [employer] lparsley 01:18 PM Catheter selectively placed in left ventricle lparsley 01:18 PM Recorded Pressure: LV, HR=70, Condition=Condition 1 (Left Ventricle) LV 145/-9/9 01:19 PM Bolus angiogram of left Ventricle complete: 10 ml/sec for a total of 20 mls lparsley :20 PM Time: 13:05 Patient comfortable and pain free: Yes lparsley :20 PM Time: 13:05LOC: 4 = Oriented but drowsy lparsley :20 PM HR=67 bpm, BJDC=359/60 mmhg, SpO2=99.0 %, Resp=15 B/min, EtCO2=32 mmHg, Comment=SR w/BBB 01:20 PM Lesion found in RPAV. Pre Stenosis: 99 Pre JENIFER Flow: 2: Partial Flow/Perfusion (> 1 but < 3) lparsley 01:20 PM Proximal Left Anterior Descending Coronary Artery with 30% stenosis. lparsley 01:20 PM Circumflex, Obtuse Marginal, Left Posterior Descending, and Left Posterolateral Coronary Arteries with 60 % stenosis. lparsley 01:21 PM Right Coronary, Right Posterior Descending Arteries with Right Posterolateral and Acute Marginal branches with 99 % stenosis. lparsley 01:21 PM Catheter removed lparsley 01:21 PM PCI Status Urgent lparsley 01:21 PM PCI lesion in RPAV. lparsley 01:22 PM 6Fr IR 1.5 Terumo guide catheter was used to cannulate the PCI vessel successfully. reused? No lparsley 01:22 PM .014 Brillion 190cm guide wire across target lesion- successful. reused? No lparsley 01:22 PM Inflation device was opened. lparsley 01:23 PM Recorded Pressure: Ao, HR=63, Condition=Condition 1 (Aorta) Ao 145/65/97 01:25 PM At 13:25 the ACT was 221 seconds. lparsley 01:26 PM HR=57 bpm, WNFR=344/58 mmhg, SpO2=99.0 %, Resp=13 B/min, EtCO2=35 mmHg, Comment=SR w/BBB 01:26 PM Time: 13:25 Heparin 2000 units Intravenous Given by Parris Ward RN lparsaddis 01:29 PM 1.5 mm x 15 mm Emerge Monorail balloon across target lesion- successful. reused? No lparsley 01:30 PM HR=64 bpm, HWQR=636/65 mmhg, SpO2=99.0 %, Resp=16 B/min, EtCO2=35 mmHg, Comment=SR w/BBB 01:31 PM Balloon inflated @ 12 tavo for 17 seconds lparsley 01:31 PM Time: 13:31 Nitroglycerin 200 mcg Intracoronary Given by Florentin Ruiz MD lparsaddis 01:32 PM Time: 13:32 Aggrastat Bolus: 33 ml Intravenous Given by Parris Ward RN Keen pump lparsaddis 01:33 PM Time: 13:32 Aggrastat 12.5mg/250ml 11.3 ml Intravenous Given by Parris Ward RN Keen pump lparsley 01:33 PM Balloon catheter removed intact. lparsley 01:33 PM 2.25mm x 12mm Synergy drug-eluting stent across target lesion- successful Lot #[id number] lparsley 01:35 PM Time: 13:20LOC: 4 = Oriented but drowsy lparsley 01:35 PM Time: 13:20 Patient comfortable and pain free: Yes lparsley 01:35 PM HR=56 bpm, ULYC=146/60 mmhg, SpO2=99.0 %, Resp=16 B/min, EtCO2=34 mmHg, Comment=SR w/BBB 01:36 PM Recorded Pressure: Ao, HR=54, Condition=Condition 1 (Aorta) Ao 122/62/89 01:37 PM Stent deployed @ 14 tavo for 40 seconds lparsley 01:38 PM Stent balloon reinflated @ 16 tavo for 13 seconds lparsley 01:38 PM Stent delivery system removed intact. lparsley 01:39 PM 2.5 mm x 8mm NC Emerge balloon across target lesion- successful. reused? No lparsley 01:40 PM HR=66 bpm, VQOX=632/65 mmhg, CkU9=998.0 %, Resp=13 B/min, EtCO2=38 mmHg, Comment=SR w/BBB 01:42 PM Balloon inflated @ 14 tavo for 13 seconds lparsley 01:42 PM Balloon catheter removed intact. lparsley 01:42 PM Guide wire removed intact. lparsley 01:42 PM Guide catheter removed intact. lparsley 01:43 PM Procedure completed at 13:43 01/25/2018 lparsley 01:43 PM Did you address JENIFER flow and Dominance? Yes lparsley 01:44 PM Sign out completed: Radiation Dose 444.58 mGy, 3031.05 cGy/cm2 Fluoro Time: 11.4 Isovue 370 - 200ml contrast 130 ml given by Florentin Ruiz MD, [facility]. Complications: NoneCardiac Rehab Consult needed: YesConfirmed administered medications: Yes lparsley 01:45 PM Isovue 370 - 200ml,2 Bottle(s) used. lparsley 01:45 PM Arterial sheath pulled, Vasc Band closure device used and was Successful S/N. lparsley 01:45 PM 13 ml air in Vasc Band. lparsley 01:45 PM Estimated Blood Loss: minimal lparsley 01:45 PM Post ECG SR w/ BBB lparsley 01:45 PM HR=66 bpm, JIZQ=193/82 mmhg, XxP3=888.0 %, Resp=13 B/min, EtCO2=35 mmHg, Comment=SR w/BBB 01:45 PM Post Blood Pressure 169/82 lparsley 01:45 PM 13:45 Post Pulses Rt Radial 2+ lparsley 01:46 PM Information taught Cardiac Cath, PCI, and Vasc Band lparsley 01:46 PM Education needs Procedure, Plan of Care, and Safe & Effective Use of Medications lparsley 01:46 PM Learning barriers :None lparsley 01:46 PM Education Methods Verbal lparsley 01:46 PM Education evaluation Able to repeat information lparsley 01:46 PM Site status No bleeding/hematoma - Rt Wrist as reported by Lorie Cheng RT (R) at 13:46 lparsaddis 01:47 PM Report given to Ranjana YANES Pt taken to Room #66. 13:47 lparsaddis 01:50 PM Time: 13:35 Patient comfortable and pain free: Yes lparsaddis 01:50 PM Time: 13:35LOC: 5 = Fully awake and oriented or at pre-proc level lparsaddis 01:51 PM Time: 13:50 Plavix 600 mg Orally Given by Parris Ward RN [facility] 01:51 PM Plavix, Effient or Brilinta given Yes [facility] 01:51 PM [facility] Patient out of room: 13:51 [facility] PM Family placed in consult [facility]. [facility] 01[facility]51 PM Complications: [facility] Com[facility] Complication None Hemodynamics Pressures Site Systolic/A Wave Diastolic/V Wave Mean AO 116 74 94 AO 126 76 100 LV 145 -9 9 AO 145 65 97 AO 122 62 89 Post Procedure Information Blood Pressure: 169/82 mmHg Rhythm: SR w/ BBB Post procedural instructions were given Closure Device Time Device Success/Fail 01/25/2018 1:44:00 PM Manual Compression Successful Site Checks Time Location Status Staff Sheath In? Note 01:46 PM Rt Wrist No bleeding/hematoma Lorie Cheng RT (R) Pulses Time Site Pre-Procedure Post-Procedure Note 01/25/2018 12:59:00 PM Bilateral DP & PT 2+ 01/25/2018 12:59:00 PM Bilateral radial 2+ 01/25/2018 12:59:00 PM Rt Radial Normal plethysmography's Test 1:45:00 PM Rt Radial 2+ Updated by Malina Zamudio RN on 01/25/2018 2:10:06 PM electronically signed on 01/25/2018 2:10:51 PM with status of Final
--- NOTE | 2018-01-25 17:33 | Electrocardiograph Report ---
[place] [address] Test Date: 2018-01-24 Pat Name: Shweta Jade Department: 104 Room: 3B Gender: F Churn Driller: ISAIAS : 1950 Requested By: Farooq Rowland Order Number: [id number] Reading MD: Vianey Armstrong Measurements Intervals [place] Rate: 80 P: 66 ND: 143 QRS: 2 QRSD: 102 T: 55 QT: 390 QTc: 426 Interpretive Statements SINUS RHYTHM INCOMPLETE RIGHT BUNDLE BRANCH BLOCK [90+ ms QRS DURATION, TERMINAL R IN V1/V2, 40+ ms S IN I/aVL/V4/V5/V6] MODERATE T-WAVE ABNORMALITY, CONSIDER ANTERIOR ISCHEMIA [-0.1+ mV T WAVE IN V3/V4] Electronically Signed On 01-25-2018 17:32:03 EDT by Vianey Armstrong
[2018-01-25] MEDS: traMADol 50 MG TABLET PO PRN (21:29)
[2018-01-26 05:52] LABS: Basophils % 0.1 %; Eosinophils # 0.2 K/mcL (0.0-0.6); Eosinophils % 2.6 %; Hematocrit 41.7 % (35.3-44.9); Immature Granulocytes % 0.3 % (0-4); Lymphocytes # 1.6 K/mcL (0.6-4.6); Lymphocytes % 20.6 %; Mean Corpuscular HGB Conc 33.6 g/dL (31.6-35.5); Mean Corpuscular Hemoglobin 30.4 pg (28.0-33.3); Mean Corpuscular Volume 90.5 fL (83.0-100.0); Monocytes # 0.7 K/mcL (0.0-1.3); Neutrophils # 5.2 K/mcL (1.6-8.9); Platelet Count 250 K/mcL (140-400); Red Blood Count 4.61 M/mcL (3.82-4.97); Red Cell Distribution Width 13.9 % (11.5-14.5); Segmented Neutrophils % 67.4 %
[2018-01-26 06:13] LABS: Alanine Aminotransferase 18 Units/L (7-52); Albumin 3.6 g/dL (3.5-5.7); Albumin/Globulin Ratio 1.6 (1.1-2.2); Alkaline Phosphatase 73 Units/L (34-104); Aspartate Amino Transferase 42 Units/L (13-39); BUN/Creatinine Ratio 14 (6-26); Bilirubin,Total 0.5 mg/dL (0.3-1.0); Blood Urea Nitrogen 9 mg/dL (8-23); Carbon Dioxide 27 mEq/L (23-29); Chloride 108 mEq/L (98-107); Globulin 2.2 g/dL (2.4-3.5); Glucose 96 mg/dL (70-105); Osmolality,Calculated 291 (280-300); Potassium 3.2 mEq/L (3.5-5.1); Sodium 141 mEq/L (136-145); Total Protein 5.8 g/dL (6.4-8.9); eGFR For Non-African Americans > 60 (> 60)
--- NOTE | 2018-01-26 09:40 | Cardiology Progress Note ---
Date of Encounter: 01/26/18 Time of Encounter: 09:37 Assessment and Plan (1) NSTEMI (non-ST elevated myocardial infarction) Current Visit: Yes Status: Acute Peak troponin 1.03. S/P LHC yesterday with PTCA/DARIA to RPLB. TTE resulted--LVEF 60-65%. Normal LV wall motion. Asymmetric basal septal hypertrophy. No LVOT obstruction. Mild LVDD. Mild MR, mild-moderate AR, mild TR. DAPT (ASA and Plavix) uninterrupted x 1 year. Pt verbalizes understanding. Continue Statin and BB. Right radial access site healing well. No bleeding, hematoma or ecchymosis noted. Restrictions discussed. Do not return to work for 1 week. Cardiology signing off. Reconsult PRN. Will coordinate outpt follow-up in 1 week. (2) Hypertension Current Visit: Yes Status: Chronic Hypertensive this AM, but no meds have been given. Continue BB. Can uptitrate BB or add ACEi if continues to be hypertensive. Qualifiers: Hypertension type: essential hypertension Qualified Code(s): I10 - Essential (primary) hypertension Discussion w patient/family: The assessment and plan as outlined above was discussed with the patient and/or family members who expressed understanding and agreement. All questions were answered. Thank you for involving us in the care of your patient. Please call with any questions. I will discuss all the above with Dr. Salgado and make changes as necessary. Subjective Principal diagnosis: NSTEMI Interval history: S/P LHC yesterday with PTCA/DARIA to RPLB. Pt denies chest pain or dyspnea this AM. Reports being restless with occasional indigestion symptoms. TTE resulted--LVEF 60-65%. Normal LV wall motion. Asymmetric basal septal hypertrophy. No LVOT obstruction. Mild LVDD. Mild MR, mild-moderate AR, mild TR. Objective Vital Signs, Last 4 Hours Temp Pulse Resp BP Pulse Ox 01/26/18 08:32 98.1 F 66 16 168/84 97 Vital Signs Temp Pulse Resp BP Pulse Ox 01/26/18 08:32 98.1 F 66 16 168/84 97 01/26/18 02:57 98.0 F 62 16 119/58 97 01/25/18 22:39 98.0 F 62 16 155/78 96 01/25/18 18:13 98.3 F 61 16 130/72 96 01/25/18 17:02 76 18 134/72 98 01/25/18 16:02 64 16 131/71 99 01/25/18 15:36 61 16 134/72 100 01/25/18 14:57 66 16 160/51 100 01/25/18 14:41 52 16 158/75 98 01/25/18 14:25 57 16 159/72 97 01/25/18 14:10 98.0 F 57 16 181/74 98 01/25/18 11:21 98.4 F 69 15 168/85 97 Intake and Output 01/25/18 01/26/18 01/26/18 23:59 07:59 15:59 Output Total 0 / 0 0 / 0 Balance 0 / 0 0 / 0 Output: Urine 0 / 0 0 / 0 Other: Weight 63.4 kg Patient Weight 01/26/18 23:59 Weight 63.4 kg General: Conversant, No Apparent Distress HEENT: Atraumatic, Normocephaly, Mucus Membranes Moist Neck: No JVD, Normal carotid pulses Cardiac: Reg Rate and Rhythm, Normal S1 and S2, No Murmur Lungs: Normal Breath Sounds, No Wheeze, Rales, Rhonchi Neuro: Alert and responsive, No focal deficits noted Abdomen: Soft, Non-Tender Skin: Other (right radial access site healing well. No bleeding, hematoma or ecchymosis noted.) Musculoskeletal: No Chest Wall Tenderness Extremities: No Clubbing, No Cyanosis, No Edema, Normal Pulses Results 01/26/18 04:57 01/26/18 04:57 Lab Results 01/25/18 01/25/18 01/26/18 09:49 09:51 04:57 WBC 7.7 Hgb 14.0 Hct 41.7 Plt Count 250 D-Dimer 369 Sodium Potassium Chloride Carbon Dioxide BUN Creatinine Glucose Calcium Total Bilirubin AST ALT Alkaline Phosphatase Troponin I 1.03 H* 01/26/18 04:57 WBC Hgb Hct Plt Count D-Dimer Sodium 141 Potassium 3.2 L Chloride 108 H Carbon Dioxide 27 BUN 9 Creatinine 0.66 Glucose 96 Calcium 9.0 Total Bilirubin 0.5 AST 42 H ALT 18 Alkaline Phosphatase 73 Troponin I Short CBC 01/26/18 Range/Units 04:57 WBC 7.7 (4.3-11.1) K/mcL Hgb 14.0 (11.5-15.4) g/dL Hct 41.7 (35.3-44.9) % Plt Count 250 (140-400) K/mcL Neutrophils # 5.2 (1.6-8.9) K/mcL BMP 01/26/18 Range/Units 04:57 Sodium 141 (136-145) mEq/L Potassium 3.2 L (3.5-5.1) mEq/L Chloride 108 H (98-107) mEq/L Carbon Dioxide 27 (23-29) mEq/L BUN 9 (8-23) mg/dL Creatinine 0.66 (0.60-1.20) mg/dL Glucose 96 (70-105) mg/dL Calcium 9.0 (8.6-10.3) mg/dL Cardiac Enzymes 01/25/18 Range/Units 09:49 Troponin I 1.03 H* (< 0.04) ng/mL Liver Function 01/26/18 Range/Units 04:57 Total Bilirubin 0.5 (0.3-1.0) mg/dL AST 42 H (13-39) Units/L ALT 18 (7-52) Units/L Alkaline Phosphatase 73 (34-104) Units/L Albumin 3.6 (3.5-5.7) g/dL Impressions Echocardiogram 01/25/18 02:07 Impressions: Blood pressure 190/90 mmHg at time of study. LVEF 60-65%. Normal LV wall motion. Asymmetric basal septal hypertrophy. No LVOT obstruction. Mild left ventricular diastolic dysfunction. Normal right ventricular structure and function. Mild mitral regurgitation. Mild-moderate aortic regurgitation. Mild tricuspid regurgitation. No pulmonary hypertension. The proximal ascending thoracic aorta appears enlarged but is not optimally visualized on this study. Consider dedicated CT imaging. Left Ventricular Wall Motion: Rest Echo Findings All wall segments showed normal motion. Findings: Study Quality * Technically adequate exam. ECG Findings * Sinus bradycardia. Left Ventricle * LVEF 60-65%. * Normal LV chamber size. * Asymmetric basal septal hypertrophy. No LVOT obstruction. * Mild left ventricular diastolic dysfunction. Right Ventricle * Normal right ventricular structure and function. Left Atrium * LA size is foreshortened. Right Atrium * Normal right atrial size. Mitral Valve * Normal mitral valve structure. * No mitral stenosis. * Mild mitral regurgitation. Aortic Valve * Mild-moderate aortic regurgitation. * Trileaflet aortic valve. * No aortic stenosis. Tricuspid Valve * Mild tricuspid regurgitation. * Normal tricuspid valve structure. * Estimated RA pressure is 3 mmHg. * Estimated RVSP is 29 mmHg. * No pulmonary hypertension. Pulmonic Valve * Pulmonic valve is not well visualized. * No pulmonic stenosis. * No pulmonic regurgitation. Pulmonary Artery * Pulmonary artery not well visualized. Aorta * The proximal ascending thoracic aorta appears enlarged but is not optimally visualized on this study. * Normally sized aortic root. Pericardium * There is no pericardial effusion present. Interatrial Septum * No evidence of PFO by color Doppler. Active Medications Acetaminophen (Tylenol) 650 mg PO Q6HR PRN PRN Reason: Mild Pain/Fever Stop: 07/27/18 02:02 Aspirin (Aspirin Ec) 81 mg PO DAILY [facility] Stop: 07/27/18 09:01 Last Admin: 01/25/18 09:59 Dose: 81 mg Atorvastatin Calcium (Lipitor) 80 mg PO HS [facility] Stop: 07/27/18 21:01 Last Admin: 01/25/18 20:21 Dose: 80 mg Clopidogrel Bisulfate (Plavix) 75 mg PO DAILY [facility] Stop: 07/28/18 09:01 Labetalol HCl (Labetalol) 10 mg IVP Q4H PRN PRN Reason: Hypertension Stop: 07/27/18 02:06 Last Admin: 01/25/18 05:54 Dose: 10 mg Metoprolol Tartrate (Lopressor) 12.5 mg PO BID [facility] Stop: 07/27/18 09:01 Last Admin: 01/25/18 20:20 Dose: 12.5 mg Naloxone HCl (Narcan) 0.4 mg IVP Q2MIN PRN PRN Reason: SEE COMMENTS Stop: 07/27/18 02:02 Tramadol HCl (Ultram) 50 mg PO Q12HR PRN PRN Reason: Moderate Pain Stop: 01/28/18 20:47 Last Admin: 01/25/18 21:29 Dose: 50 mg - Imaging and Cardiology Echo: report reviewed Cardiac cath: report reviewed - EKG Interpretation EKG results cardiology: other (12 hr tele AVG HR 63, SR, no significant pauses or arrhythmias noted.) - VTE Documentation of Mechanical Device: Venous foot pump, device Consult Discharge Plan - Plan Additional Instructions: RISK FACTORS: STOP SMOKING: If you smoke, STOP. Smoking or tobacco use significantly increases your risk of heart disease because nicotine causes the arteries to narrow or constrict. It also causes fats to stick to the artery. Your chances of having a heart attack are greatly increased if you continue to smoke. For more information, call the education line for smoking cessation 3-762-TYWLSPJ EAT A LOW FAT/CHOLESTEROL/SODIUM DIET: This diet may help reduce your chances of having a heart attack. LIFTING: With affected extremity: Avoid bending, pushing off and lifting more than 2 pounds for 24 hours The following 48 hours, avoid lifting anything more than 5 pounds Avoid strenuous activity or repetitive motions ACTIVITY: You may walk or climb stairs as tolerated You can resume sexual activity as tolerated In general, you are encouraged to engage in a minimum of 30 minutes or more of moderate intensity physical activity, such as brisk walking, daily or at least 3 -4 times weekly BATHING Do not submerge the site into water (bath tub, hot tub, swimming pool, dishes) for 1 week. This can be a source for infection into the blood stream. You may shower after 24 hours SITE CARE: After 24 hours, you may remove the dressing and leave the site open to air. Keep the site clean and dry. Clean gently and pat dry. You can expect bruising and tenderness that gradually resolve within a week or two. Return to work as instructed per your physician Resume driving as instructed per physician Keep all scheduled follow up appointments Resume medications as instructed IMPORTANT: If prescribed a Platelet Aggregation Inhibitor such as, Plavix, Brilinta or Effient: Duration of therapy is minimum one year These medications are often used in combination with Aspirin in prevention of future heart attacks Never discontinue unless consult with your Senior Linux Unix Engineer STROKE (CVA) Risk factors for a stroke are: Age, cigarette smoking, diabetes, excessive alcohol consumption, family history, high blood pressure, overweight, physical inactivity, prior stroke, heart attack, diagnosis of carotid artery stenosis or other artery disease. Warning signs: Sudden numbness or weakness of the face, arm or leg; especially on one side of the body, sudden confusion, trouble speaking or understanding, sudden trouble seeing in one or both eyes, sudden trouble walking, dizziness, loss of balance or coordination, sudden severe headache with no cause. Call 911 or go to the Emergency Room. CONGESTIVE HEART FAILURE: If you have been diagnosed with Congestive Heart Failure (CHF) and your symptoms return, make an appointment with your physician Weigh yourself daily. Notify your physician if you have a weight gain of two or more pounds in one day or five or more pounds in one week. If you experience any difficulty breathing, please call 911 BLEEDING: Although the risk of bleeding is minimal, it can happen. If you have any bleeding from the site, apply firm pressure above the puncture site for 10-15 minutes. If the bleeding does not stop, continue manual pressure and call 911 Contact [facility] ( ) if: You develop a fever greater than 101 degrees Fahrenheit Your site becomes reddened or has any drainage You have an increase in pain or burning at the site or if a large knot forms at the site. If you experience chest pain, shortness of breath, dizziness, or extreme tiredness, stop the activity and rest. Please notify [facility] office if you experience any of these symptoms and they are not relieved by rest please call 911! Referrals: Navdeep Darby MD [Primary Care Provider] -
[2018-01-26] MEDS: Aspirin Enteric Coated 81 MG Tablet PO SCH (11:04)
[2018-01-26] MEDS: traMADol 50 MG TABLET PO PRN ×2 (11:04→22:34)
[2018-01-26] MEDS: Pantoprazole 40 MG VIAL IVP SCH (11:04)
--- NOTE | 2018-01-26 16:44 | Internal Med Progress Note ---
Hospitalist Progress Note - Encounter Date of Encounter: 01/26/18 Time of Encounter: 11:30 - Subjective Interval History: Patient seen and examined at bedside. Pt. was resting in bed and stated that she continues to have mild discomfort centralized in her chest. States it feels like heartburn. Denies shortness of breath, nausea, vomiting, or other symptoms at this time. Heparin drip discontinued. Patient seen by cardiology with recommendation to continue ASA, Plavix, statin, beta ed. Cardiology reports right radial access site healing well with no bleeding, hematoma, or ecchymosis. Patient not to return to work for 1 week. Pt. expresses understanding and agreement w/plan of care. - Exam Vitals: Temp Pulse Resp BP Pulse Ox 98 F 67 16 181/84 95 01/26/18 11:58 01/26/18 11:58 01/26/18 11:58 01/26/18 11:58 01/26/18 11:58 Exam: PHYSICAL EXAMINATION: GENERAL: The patient is a well-developed female reporting mild heartburn. She is alert and oriented x3. HEENT: Head is normocephalic and atraumatic. Extraocular muscles are intact. Pupils are equal, round, and reactive to light and accommodation. Nares appeared normal. Mouth is well hydrated and without lesions. Mucous membranes are moist. NECK: Supple. No carotid bruits. No lymphadenopathy or thyromegaly. LUNGS: Clear bilaterally on auscultation HEART: Regular rate and rhythm grade 2 murmur murmur. No JVD noted ABDOMEN: Soft, nontender, and nondistended. Positive bowel sounds. No hepatosplenomegaly was noted. EXTREMITIES: Without any cyanosis, clubbing, rash, lesions. +1 pitting edema NEUROLOGIC: Cranial nerves II through XII are grossly intact. PSYCHIATRIC: Normal mood and affect SKIN: Dry and intact. Right radial access site for heart catheterization healing well without bleeding, hematoma, or ecchymosis. - Assessment and Plan (1) NSTEMI (non-ST elevated myocardial infarction) Current Visit: Yes Status: Resolved Assessment and Plan: Post transradial LHC with successful PTCA/drug eluting stent placement in RPLB. Per cardiology, continue ASA, Plavix, statin, and BB Patient not return to work for 1 week No heavy lifting per cardiology instructions Follow-up with outpatient with cardiology within 1 week (2) Lung nodule Current Visit: Yes Status: Acute Assessment and Plan: Patient is ex-smoker, quit 16 years ago 5 mm lung nodule noted incidentally on the left lower lobe Follow-up outpatient (3) Hypertension Current Visit: Yes Status: Chronic Assessment and Plan: BPs ranging from 119/58-181/84 today IVP Hydralazine 10 mg Q6HR PRN w/parameters ordered for overnight On aldactone at home as she had "many reactions to the other anti-HTN meds" PRN labetalol Continue Metoprolol (4) HLD (hyperlipidemia) Current Visit: Yes Status: Chronic Assessment and Plan: Lipid panel done in December 2017 showed LDL of 118 Continue pts. Lipitor 80 mg (5) DVT prophylaxis Current Visit: Yes Status: Acute Assessment and Plan: Heparin SQ Q12HR for DVT prophylaxis. Monitor pt. for signs of bleeding. - Summary of Assessment and Plan Summary of Assessment and Plan: Continue to monitor pt. overnight Correct hypokalemia with 40 Elizabeth Q by mouth once and recheck potassium at 00:00 Continue IVP Protonix for patient's report of heartburn Continue telemetry overnight Check CBC and CMP in a.m. If patient has no adverse events overnight we will plan to DC in a.m. - Time Spent with Patient Total time spent is greater than 50% in coordination of care (as documented) at patient's floor/unit and/or counseling patient: less than 15 minutes Plan of Care Discussed with: patient Internal Medicine: Result - Labs CBC & Chem 7: 01/26/18 04:57 01/26/18 04:57 Labs: Short CBC 01/26/18 Range/Units 04:57 WBC 7.7 (4.3-11.1) K/mcL Hgb 14.0 (11.5-15.4) g/dL Hct 41.7 (35.3-44.9) % Plt Count 250 (140-400) K/mcL Neutrophils # 5.2 (1.6-8.9) K/mcL BMP 01/26/18 04:57 Sodium 141 Potassium 3.2 L Chloride 108 H Carbon Dioxide 27 BUN 9 Creatinine 0.66 Glucose 96 Calcium 9.0 Liver Function 01/26/18 Range/Units 04:57 Total Bilirubin 0.5 (0.3-1.0) mg/dL AST 42 H (13-39) Units/L ALT 18 (7-52) Units/L Alkaline Phosphatase 73 (34-104) Units/L Albumin 3.6 (3.5-5.7) g/dL - ABG Interpretation ABG results: PT/INR, D-dimer PT 10.9 Seconds (9.4-12.1) 01/24/18 22:17 D-Dimer 369 ng/mLFEU (0-500) 01/25/18 09:51 - VTE Documentation of Mechanical Device: Venous foot pump, device Consult Discharge Plan - Plan Additional Instructions: RISK FACTORS: STOP SMOKING: If you smoke, STOP. Smoking or tobacco use significantly increases your risk of heart disease because nicotine causes the arteries to narrow or constrict. It also causes fats to stick to the artery. Your chances of having a heart attack are greatly increased if you continue to smoke. For more information, call the education line for smoking cessation 0-200-MNYBBXL EAT A LOW FAT/CHOLESTEROL/SODIUM DIET: This diet may help reduce your chances of having a heart attack. LIFTING: With affected extremity: Avoid bending, pushing off and lifting more than 2 pounds for 24 hours The following 48 hours, avoid lifting anything more than 5 pounds Avoid strenuous activity or repetitive motions ACTIVITY: You may walk or climb stairs as tolerated You can resume sexual activity as tolerated In general, you are encouraged to engage in a minimum of 30 minutes or more of moderate intensity physical activity, such as brisk walking, daily or at least 3 -4 times weekly BATHING Do not submerge the site into water (bath tub, hot tub, swimming pool, dishes) for 1 week. This can be a source for infection into the blood stream. You may shower after 24 hours SITE CARE: After 24 hours, you may remove the dressing and leave the site open to air. Keep the site clean and dry. Clean gently and pat dry. You can expect bruising and tenderness that gradually resolve within a week or two. Return to work as instructed per your physician Resume driving as instructed per physician Keep all scheduled follow up appointments Resume medications as instructed IMPORTANT: If prescribed a Platelet Aggregation Inhibitor such as, Plavix, Brilinta or Effient: Duration of therapy is minimum one year These medications are often used in combination with Aspirin in prevention of future heart attacks Never discontinue unless consult with your Echocardiography Tech STROKE (CVA) Risk factors for a stroke are: Age, cigarette smoking, diabetes, excessive alcohol consumption, family history, high blood pressure, overweight, physical inactivity, prior stroke, heart attack, diagnosis of carotid artery stenosis or other artery disease. Warning signs: Sudden numbness or weakness of the face, arm or leg; especially on one side of the body, sudden confusion, trouble speaking or understanding, sudden trouble seeing in one or both eyes, sudden trouble walking, dizziness, loss of balance or coordination, sudden severe headache with no cause. Call 911 or go to the Emergency Room. CONGESTIVE HEART FAILURE: If you have been diagnosed with Congestive Heart Failure (CHF) and your symptoms return, make an appointment with your physician Weigh yourself daily. Notify your physician if you have a weight gain of two or more pounds in one day or five or more pounds in one week. If you experience any difficulty breathing, please call 911 BLEEDING: Although the risk of bleeding is minimal, it can happen. If you have any bleeding from the site, apply firm pressure above the puncture site for 10-15 minutes. If the bleeding does not stop, continue manual pressure and call 911 Contact [facility] ( ) if: You develop a fever greater than 101 degrees Fahrenheit Your site becomes reddened or has any drainage You have an increase in pain or burning at the site or if a large knot forms at the site. If you experience chest pain, shortness of breath, dizziness, or extreme tiredness, stop the activity and rest. Please notify [facility] office if you experience any of these symptoms and they are not relieved by rest please call 911! [facility] [place] [Primary Care Provider] - (3) Hypertension Qualifiers: Hypertension type: essential hypertension Qualified Code(s): I10 - Essential (primary) hypertension (4) HLD (hyperlipidemia) Qualifiers: Hyperlipidemia type: pure hypercholesterolemia Qualified Code(s): E78.00 - Pure hypercholesterolemia, unspecified; E78.0 - Pure hypercholesterolemia
[2018-01-26] MEDS: *HR* Heparin 5,000 UNIT/ML VIAL SQ SCH (18:17)
[2018-01-27 01:26] LABS: Alanine Aminotransferase 17 Units/L (7-52); Albumin 3.4 g/dL (3.5-5.7); Albumin/Globulin Ratio 1.6 (1.1-2.2); Alkaline Phosphatase 69 Units/L (34-104); Aspartate Amino Transferase 33 Units/L (13-39); BUN/Creatinine Ratio 18 (6-26); Bilirubin,Total 0.4 mg/dL (0.3-1.0); Blood Urea Nitrogen 13 mg/dL (8-23); Calcium 9.1 mg/dL (8.6-10.3); Carbon Dioxide 29 mEq/L (23-29); Chloride 107 mEq/L (98-107); Globulin 2.1 g/dL (2.4-3.5); Glucose 113 mg/dL (70-105); Osmolality,Calculated 295 (280-300); Sodium 142 mEq/L (136-145); Total Protein 5.5 g/dL (6.4-8.9); eGFR For Non-African Americans > 60 (> 60)
[2018-01-27 02:39] LABS: Basophils % 0.3 %; Eosinophils # 0.2 K/mcL (0.0-0.6); Eosinophils % 2.9 %; Hemoglobin 13.2 g/dL (11.5-15.4); Immature Granulocytes % 0.3 % (0-4); Lymphocytes # 1.7 K/mcL (0.6-4.6); Lymphocytes % 23.8 %; Mean Corpuscular Hemoglobin 29.7 pg (28.0-33.3); Mean Corpuscular Volume 90.1 fL (83.0-100.0); Mean Platelet Volume 10.2 fL (9.4-12.4); Monocytes # 0.7 K/mcL (0.0-1.3); Monocytes % 9.6 %; Neutrophils # 4.5 K/mcL (1.6-8.9); Platelet Count 256 K/mcL (140-400); Red Blood Count 4.44 M/mcL (3.82-4.97); Segmented Neutrophils % 63.1 %
[2018-01-27] MEDS: *HR* Heparin 5,000 UNIT/ML VIAL SQ SCH (05:51)
[2018-01-27 08:11] VITALS: BP 163/81
[2018-01-27] MEDS: Pantoprazole 40 MG VIAL IVP SCH (09:02)
[2018-01-27] MEDS: Aspirin Enteric Coated 81 MG Tablet PO SCH (09:02)
[2018-01-27] MEDS: traMADol 50 MG TABLET PO PRN (11:11)
--- NOTE | 2018-01-27 11:32 | Discharge Summary ---
- NOTES TO OUTPATIENT PROVIDER Notes to Outpatient Provider: Follow up with Cardiology per their instructions for post-LHC care and follow-up. Patient started on Plavix 75 mg daily d/t stent placement and instructed by Cardiology to continue aspirin and Plavix daily for this reason and to not miss any doses. Orders not resulted at time of discharge: Pending orders 01/25/18 13:52 ECG 12 lead ECG [ECG] Stat 01/26/18 06:00 ECG 12 lead ECG [ECG] AM 0600 Date of Encounter: 01/27/18 Time of Encounter: 11:30 - Discharge Diagnosis (1) NSTEMI (non-ST elevated myocardial infarction) Priority: Primary Status: Resolved Assessment and Plan: Post transradial LHC with successful PTCA/drug eluting stent placement in [facility]. Per cardiology, continue ASA, Plavix, statin, and BB Patient not return to work for 1 week No heavy lifting per cardiology instructions Follow-up with outpatient with cardiology within 1 week Pt. given prescription for Plavix 75 mg daily x30 days and continuation/refills to be determined during Cardiology follow-up (2) Lung nodule Priority: Primary Status: Acute Assessment and Plan: Patient is ex-smoker, quit 16 years ago 5 mm lung nodule noted incidentally on the left lower lobe Follow-up as outpatient (3) Hypertension Priority: Secondary Status: Chronic Assessment and Plan: Continue home HTN medications. Qualifiers: Hypertension type: essential hypertension Qualified Code(s): I10 - Essential (primary) hypertension (4) HLD (hyperlipidemia) Priority: Secondary Status: Chronic Assessment and Plan: Lipid panel done in December 2017 showed LDL of 118 Continue home dose of Lipitor 80 mg Qualifiers: Hyperlipidemia type: pure hypercholesterolemia Qualified Code(s): E78.00 - Pure hypercholesterolemia, unspecified; E78.0 - Pure hypercholesterolemia Hospital course: Ms. Jade is a 68 year old female Discharge discussed with: patient - Time Spent with Patient Total time spent providing and/or coordinating discharge services: Less than 30 minutes Specific discharge activities: Follow up w/PCP and Cardiology within one week of discharge. Take aspirin and 75 mg Plavix daily as instructed per cardiology and do not skip any doses. - Discharge Medications Prescriptions: Clopidogrel [Plavix] 75 mg PO DAILY 30 Days #30 tablet Home Medications: Aspirin [Lo-Dose Aspirin EC] 81 mg PO DAILY 01/26/18 [History] Bee Pollen 1,650 mg PO DAILY 01/26/18 [History] Calcium Carbonate/Vitamin D3 [Calcium 500 + Vit D Caplet] 1 tab PO DAILY [History] Multivit-Min/FA/Lycopen/Lutein [A Thru Z Select Multivit Tab] 1 tab PO DAILY 05/05 [History] Spironolactone [Aldactone] 25 mg PO Q48H 01/26/18 [History] Tramadol HCl [Ultram] 50 mg PO BID PRN 01/26/18 [History] Vitamin B Complex [B Complex] 1 tab PO DAILY 01/26/18 [History] Clopidogrel [Plavix] 75 mg PO DAILY 30 Days #30 tablet 01/27/18 [Rx] Allergies/Adverse Reactions: 3 Allergy/AdvReac Type Severity Reaction Status Date / Time codeine AdvReac SEVERE Verified 01/26/18 12:31 VOMITING Date of admission: 01/25/18 02:12 Primary care physician: Navdeep Darby MD Consults: 01/25/18 13:52 Consult to Cardiac Rehabilitation-Phase1 [CONS] Routine Comment: Reason for Consult: post op PCI Call Completed: Yes Discharging clinician: Isiah Barone Anticipated date of discharge: 01/27/18 - Constitutional Vitals: Temp Pulse Resp BP Pulse Ox 97.9 F 72 17 163/81 96 01/27/18 08:09 01/27/18 08:09 01/27/18 08:09 01/27/18 08:09 01/27/18 08:09 General appearance: Present: cooperative, A&O X 3, pleasant, no acute distress, answers questions appropriately - Head Head exam: Present: atraumatic, normocephalic - Eye Eye exam: Present: PERRL, conjuntiva pink, sclera anicteric Pupils: Present: PERRL - ENT ENT exam: Present: normal exam - Neck Neck exam general surgery: Present: normal inspection, supple, trachea midline. Absent: lymphadenopathy - Respiratory Respiratory exam: Present: CTAB. Absent: accessory muscle use, rales, rhonchi, wheezes - Cardiovascular Cardiovascular exam: Present: RRR, +S1, +S2. Absent: diastolic murmur, gallop, rubs, systolic murmur - GI/Abdominal GI/Abdominal exam: Present: normal bowel sounds, soft, no peritoneal signs. Absent: distended, tenderness - Rectal Rectal exam: Present: deferred - Additional comments: exam deferred. - Extremities Exam Extremities exam: Present: warm, radial pulses palpable and symmetrical. Absent : calf tenderness, cyanotic, pedal edema - Back Exam Back exam: Present: normal inspection - Neurological Exam Neurological exam: Present: CN II-XII intact, oriented X3, no focal deficits. Absent: pronater drift, facial droop, speech deficit - Psychiatric Psychiatric exam: Present: normal affect, normal mood - Skin Skin exam: Present: dry, intact - Patient Status Disposition: Home, Self-Care Condition: Good Functional capacity at discharge: independent ambulation Overall status at discharge: patient is back to baseline - Discharge Instructions Instructions: Clopidogrel (By mouth), Left Heart Catheterization (DC) Follow Up With: Navdeep Darby MD [Primary Care Provider] - (Please call office on Sunday to schedule an appointment for hospital follow up.) Additional Instructions: RISK FACTORS: STOP SMOKING: If you smoke, STOP. Smoking or tobacco use significantly increases your risk of heart disease because nicotine causes the arteries to narrow or constrict. It also causes fats to stick to the artery. Your chances of having a heart attack are greatly increased if you continue to smoke. For more information, call the education line for smoking cessation [id number] EAT A LOW FAT/CHOLESTEROL/SODIUM DIET: This diet may help reduce your chances of having a heart attack. LIFTING: With affected extremity: Avoid bending, pushing off and lifting more than 2 pounds for 24 hours The following 48 hours, avoid lifting anything more than 5 pounds Avoid strenuous activity or repetitive motions ACTIVITY: You may walk or climb stairs as tolerated You can resume sexual activity as tolerated In general, you are encouraged to engage in a minimum of 30 minutes or more of moderate intensity physical activity, such as brisk walking, daily or at least 3 -4 times weekly BATHING Do not submerge the site into water (bath tub, hot tub, swimming pool, dishes) for 1 week. This can be a source for infection into the blood stream. You may shower after 24 hours SITE CARE: After 24 hours, you may remove the dressing and leave the site open to air. Keep the site clean and dry. Clean gently and pat dry. You can expect bruising and tenderness that gradually resolve within a week or two. Return to work as instructed per your physician Resume driving as instructed per physician Keep all scheduled follow up appointments Resume medications as instructed IMPORTANT: If prescribed a Platelet Aggregation Inhibitor such as, Plavix, Brilinta or Effient: Duration of therapy is minimum one year These medications are often used in combination with Aspirin in prevention of future heart attacks Never discontinue unless consult with your Sox Analyst STROKE (CVA) Risk factors for a stroke are: Age, cigarette smoking, diabetes, excessive alcohol consumption, family history, high blood pressure, overweight, physical inactivity, prior stroke, heart attack, diagnosis of carotid artery stenosis or other artery disease. Warning signs: Sudden numbness or weakness of the face, arm or leg; especially on one side of the body, sudden confusion, trouble speaking or understanding, sudden trouble seeing in one or both eyes, sudden trouble walking, dizziness, loss of balance or coordination, sudden severe headache with no cause. Call 911 or go to the Emergency Room. CONGESTIVE HEART FAILURE: If you have been diagnosed with Congestive Heart Failure (CHF) and your symptoms return, make an appointment with your physician Weigh yourself daily. Notify your physician if you have a weight gain of two or more pounds in one day or five or more pounds in one week. If you experience any difficulty breathing, please call 911 BLEEDING: Although the risk of bleeding is minimal, it can happen. If you have any bleeding from the site, apply firm pressure above the puncture site for 10-15 minutes. If the bleeding does not stop, continue manual pressure and call 911 Contact [facility] ( ) if: You develop a fever greater than 101 degrees Fahrenheit Your site becomes reddened or has any drainage You have an increase in pain or burning at the site or if a large knot forms at the site. If you experience chest pain, shortness of breath, dizziness, or extreme tiredness, stop the activity and rest. Please notify [facility] office if you experience any of these symptoms and they are not relieved by rest please call 911! - Diet and Activity Activity: as per the cardiac rehab (Do not return to work for one week per Cardiology. Follow Cardiology instructions regarding lifting, strenuous exercises, etc.) Diet: low fat, low cholesterol, low salt diet - VTE Documentation of Mechanical Device: Venous foot pump, device
== END 2018-01-27 12:07 | disposition home or self-care (01) | DRG 247 ==
LOC: EMEROO 22:10 → 3BNU 22:10
PROVIDERS: ADMIT Internal Medicine; ATTEND Internal Medicine